=== PATIENT | female | born 1985 | race African-American/Black ===

== ENCOUNTER 2021-09-08 09:09 | Emergency (ER) | payer MEDICAID ==
[~2021-09-08] VITALS: Ht 160 cm; Wt 91.0 kg
[2021-09-08] MEDS ORDERED: IBUPROFEN 400MG TABLET PO ONE (11:00)
[2021-09-08 11:08] VITALS: BP 121/65
[2021-09-08] MEDS ORDERED: IBUP-2028 MT (11:19)
== END 2021-09-08 11:30 | disposition home or self-care (01) ==
LOC: ER 09:09
DX: M79.641 Pain in right hand (principal)
CPT/HCPCS: 81025; 99282

== ENCOUNTER 2021-09-10 14:05 | Emergency (ER) | payer MEDICAID ==
[~2021-09-10] VITALS: Ht 160 cm; Wt 91.0 kg
[~2021-09-10 14:05] MED LIST: IBUP-2028 MT
[2021-09-10] MEDS ORDERED: GABA-532 PO (15:52)
[2021-09-10] MEDS ORDERED: NAPR-681 PO (15:52)
[2021-09-10 16:10] VITALS: BP 112/75
== END 2021-09-10 16:10 | disposition home or self-care (01) ==
LOC: ER 14:05
DX: G56.01 Carpal tunnel syndrome, right upper limb (principal); M25.531 Pain in right wrist
CPT/HCPCS: 73110; 81025; 99283

== ENCOUNTER 2021-12-04 13:40 | Emergency (ER) | payer MEDICAID, OTHER ==
[~2021-12-04] VITALS: Ht 160 cm; Wt 91.0 kg
[~2021-12-04 13:40] MED LIST changes: +GABA-532 PO; +NAPR-681 PO
[2021-12-04 13:47] VITALS: BP 111/77
[2021-12-04] MEDS ORDERED: FAMOTIDINE 20MG/2ML VIAL IV NR (16:01)
[2021-12-04] MEDS ORDERED: MAGNESIUM/ALUMINUM HYDROXIDE/SIMETHICONE 30ML UDC PO NR (16:01)
[2021-12-04] MEDS ORDERED: ONDANSETRON HCL 4MG/2ML INJ IV NR (16:01)
[2021-12-04] MEDS ORDERED: SODIUM CHLORIDE 0.9% 1,000 ML IV ONE (16:15)
[2021-12-04 16:32] LABS: BASOPHILS % 0.1 % (0.0-2.0); HEMATOCRIT. 40.2 % (36.0-48.0); HEMOGLOBIN. 13.7 g/dL (12.0-16.0); LYMPHOCYTES % 19.6 % (20.0-50.0); MEAN CORPUSCULAR HEMOGLOBIN 32.2 pg (28.0-32.0); MEAN CORPUSCULAR VOLUME 94.4 fL (81.0-99.0); MEAN PLATELET VOLUME 6.5 fl (7.4-10.4); NEUTROPHILS % 77.3 % (40.0-76.0); PLATELET 305 x1000/uL (130-400); RED BLOOD CELL COUNT 4.26 mill/uL (4.2-5.4); RED CELL DISTRIBUTION WIDTH 18.6 % (11.6-14.6)
[2021-12-04 16:39] LABS: INR 1.1; PROTHROMBIN TIME 11.6 sec (9.6-11.0)
[2021-12-04 16:44] LABS: HCG SCREEN NEGATIVE
[2021-12-04 17:26] LABS: CHLORIDE 104 mEq/L (98-107)
[2021-12-04 18:01] LABS: CLARITY URINE CLEAR (CLEAR); COLOR URINE YELLOW (YELLOW); KETONES URINE TRACE (NEGATIVE); LEUKOCYTE ESTERASE URINE TRACE (NEGATIVE); NITRITE URINE NEGATIVE (NEGATIVE); OCCULT BLOOD URINE 1+ (NEGATIVE); PROTEIN URINE NEGATIVE (NEGATIVE); SPECIFIC GRAVITY URINE 1.009 (1.005-1.030)
[2021-12-04] MEDS ORDERED: NITR100C MT (18:55)
[2021-12-04] MEDS ORDERED: FAMO20TA8 MT (19:12)
[2021-12-04 19:54] LABS: *AMPHETAMINES SCREEN URINE NEGATIVE (NEGATIVE); *BARBITURATES SCREEN URINE NEGATIVE (NEGATIVE); *BENZODIAZEPINES SCREEN URINE NEGATIVE (NEGATIVE); *COCAINE SCREEN URINE NEGATIVE (NEGATIVE); METHADONE URINE SCREEN NEGATIVE (NEGATIVE); OPIATES URINE SCREEN NEGATIVE (NEGATIVE); PHENCYCLIDINE URINE SCREEN NEGATIVE (NEGATIVE)
[2021-12-04 19:55] LABS: CANNABINOID URINE SCREEN PRESUMTIVE POSITIVE (NEGATIVE)
== END 2021-12-04 19:22 | disposition home or self-care (01) ==
LOC: ER 13:40
DX: R10.84 Generalized abdominal pain (principal); K76.0 Fatty (change of) liver, not elsewhere classified; E28.2 Polycystic ovarian syndrome; Z91.011 Allergy to milk products
CPT/HCPCS: 36415; 71045; 76705; 80053; 80305; 81003; 83690; 84703; 85025; 85610; 96361; 96374; 96375; 99285; J2405; J3490